=== PATIENT | female | born 1950 | race Caucasian/White ===

== ENCOUNTER 2018-11-28 13:54 | Emergency (ER) | payer MEDICARE ==
[~2018-11-28] VITALS: Ht 160 cm; Wt 67.6 kg
[2018-11-28 14:20] VITALS: BP 147/89
== END 2018-11-28 17:55 | disposition home or self-care (01) ==
LOC: ER 13:54
DX: H10.13 Acute atopic conjunctivitis, bilateral (principal)

== ENCOUNTER 2021-01-17 00:21 | Inpatient (IN) | payer MEDICARE, OTHER ==
[~2021-01-17] VITALS: Ht 157.5 cm; Wt 76.0 kg
[2021-01-17 01:45] LABS: Basophils # (auto) 0.1 10 ^3/uL (0-0.2); Basophils % (auto) 0.9 % (0.0-2.0); Eosinophils # (auto) 0 10 ^3/uL (0-0.8); Eosinophils % (auto) 0.1 % (0.0-7.0); Hematocrit 42.5 % (36.0-46.0); Hemoglobin 14.5 g/dL (12.2-16.2); Lymphocytes # (auto) 1.3 10 ^3/uL (0.4-5.4); Lymphocytes % (auto) 8.5 % (10.0-50.0); Mean Corpuscular Hemoglobin 29.7 pg (28.0-32.0); Mean Corpuscular Hgb Conc. 34.2 g/dL (32.0-36.0); Monocytes # (auto) 0.8 10 ^3/uL (0-1.3); Monocytes % (auto) 4.8 % (0.0-12.0); Neutrophils # (auto) 13.6 10 ^3/uL (1.6-8.6); Neutrophils % (auto) 85.7 % (37.0-80.0); Nucleated Red Blood Cells % 0.9 %; Red Blood Cells 4.88 10^6/uL (4.0-5.20); Red Cell Distribution Width 14.9 % (11.8-14.3); White Blood Cell 15.8 10^3/uL (4.4-10.8)
[2021-01-17 02:04] LABS: Albumin 2.6 g/dL (3.4-5.0); BUN/Creatinine Ratio 33.5; Calcium 8.6 mg/dL (8.5-10.1); Magnesium 2.9 mg/dL (1.6-2.6); Potassium 3.6 mmol/L (3.5-5.1)
[2021-01-17 02:09] LABS: Lactic Acid w/Reflex 3.4 mmol/L (0.4-2.0)
[2021-01-17 02:12] LABS: Bilirubin, Total 1.1 mg/dL (0.2-1.0); Total Protein 7.7 g/dL (6.4-8.2)
[2021-01-17 02:28] LABS: INR 1.18 (0.9-1.15); Partial Thromboplastin Time 30.2 sec (23.6-33.0)
[2021-01-17] MEDS ORDERED: cefTRIAXone 1GM/50ML D5W 50 ML IV ONE (02:45)
[2021-01-17] MEDS ORDERED: ASPirin 325 MG TAB PO ONE (02:45)
[2021-01-17] MEDS ORDERED: ENOXAPARIN SOD 100 MG/1 ML SYRINGE SC ONE (02:45)
[2021-01-17] MEDS ORDERED: AZITHROMYCIN 500MG/ 250ML 250 ML IV ONE (02:45)
[2021-01-17] MEDS ORDERED: DOCUSATE SOD 100 MG CAP PO PRN (03:30)
[2021-01-17] MEDS ORDERED: ACETAMINOPHEN 500 MG TAB PO PRN (03:30)
[2021-01-17] MEDS ORDERED: SODIUM CHLORIDE 0.9% 1,000 ML IV SCH (03:30)
[2021-01-17] MEDS ORDERED: NITROGLYCERIN 0.4 MG SL TAB SL PRN (03:30)
[2021-01-17] MEDS ORDERED: ACETAMINOPHEN 325 MG TAB PO PRN (03:30)
[2021-01-17] MEDS ORDERED: MORPHINE SULFATE INJECTION 2 MG/ML SYRG IV PRN (03:30)
[2021-01-17] MEDS ORDERED: HYDROcodone-ACET 5/325MG TAB PO PRN (03:30)
[2021-01-17] MEDS ORDERED: DexAMETHasone SOD PHOS 10MG/1ML VIAL INJ IV ONE (03:30)
[2021-01-17] MEDS: ALBUTEROL SULF HFA 90MCG INH 200DOSE IN SCH ×3 (07:48→21:39)
[2021-01-17 09:00] VITALS: BP 126/77
[2021-01-17] MEDS: FAMOTIDINE (10MG/ML) 2ML VL IV SCH ×2 (09:50→22:23)
[2021-01-17] MEDS: MULTIPLE VITAMIN TAB PO SCH (09:50)
[2021-01-17] MEDS: ASPirin 81 mg TAB PO SCH (09:50)
[2021-01-17] MEDS: ZINC SULFATE 220mg CAP or TAB PO SCH (09:50)
[2021-01-17] MEDS: HEPARIN SODIUM (PORCINE) 5000 UNITS/ML 1ML VIAL SC SCH ×2 (09:51→22:24)
[2021-01-17] MEDS: ASCORBIC ACID 500 MG TAB PO SCH ×2 (09:51→22:23)
[2021-01-17] MEDS: D5W/SOD CHL 0.45%/KCL 20MEQ 1,000 ML IV SCH (10:46)
[2021-01-17 11:26] LABS: Urine Bacteria MOD /hpf (None Seen); Urine Blood 1+ /uL (Negative); Urine Budding Yeast FEW /hpf (None Seen); Urine Mucus FEW (None Seen); Urine Specific Gravity 1.024 (1.001-1.035); Urine WBC 12 /hpf (0 - 5)
[2021-01-17 11:36] LABS: Protein, Urine 266.3 mg/dL (0.0-11.9)
[2021-01-17] MEDS ORDERED: methylPREDNISolone SOD SUCC 40 MG/ML VL IV SCH (12:00)
[2021-01-17 13:00] VITALS: BP 101/61
[2021-01-17] MEDS ORDERED: REMDESIVIR 200 MG in NS 210ml LOADING DOSE ADULT IV ONE (15:00)
[2021-01-17 15:10] VITALS: BP 131/74
[2021-01-17 16:46] VITALS: BP 126/70
[2021-01-17 22:07] VITALS: BP 146/81
[2021-01-18 05:03] VITALS: BP 116/59
[2021-01-18 06:26] LABS: Basophils # (auto) 0 10 ^3/uL (0-0.2); Basophils % (auto) 0.1 % (0.0-2.0); Eosinophils # (auto) 0 10 ^3/uL (0-0.8); Hematocrit 40.2 % (36.0-46.0); Hemoglobin 13.3 g/dL (12.2-16.2); Lymphocytes # (auto) 1.6 10 ^3/uL (0.4-5.4); Lymphocytes % (auto) 6.8 % (10.0-50.0); Mean Corpuscular Hemoglobin 29.8 pg (28.0-32.0); Mean Corpuscular Hgb Conc. 33.2 g/dL (32.0-36.0); Mean Corpuscular Volume 89.6 fL (80.0-100.0); Monocytes # (auto) 0.8 10 ^3/uL (0-1.3); Monocytes % (auto) 3.3 % (0.0-12.0); Neutrophils # (auto) 21.1 10 ^3/uL (1.6-8.6); Neutrophils % (auto) 89.8 % (37.0-80.0); Nucleated Red Blood Cells % 0.5 %; Red Blood Cells 4.49 10^6/uL (4.0-5.20); Red Cell Distribution Width 15.6 % (11.8-14.3); White Blood Cell 23.5 10^3/uL (4.4-10.8)
[2021-01-18 06:37] LABS: Potassium 3.7 mmol/L (3.5-5.1)
[2021-01-18] MEDS: ALBUTEROL SULF HFA 90MCG INH 200DOSE IN SCH ×3 (06:38→20:44)
[2021-01-18 06:51] LABS: Albumin 2.1 g/dL (3.4-5.0); BUN/Creatinine Ratio 43.9; Bilirubin, Total 0.8 mg/dL (0.2-1.0); CRP High Sensitivity 17.3 mg/dL (< 0.3); Calcium 8.1 mg/dL (8.5-10.1); Total Protein 6.6 g/dL (6.4-8.2)
[2021-01-18] MEDS: D5W/SOD CHL 0.45%/KCL 20MEQ 1,000 ML IV SCH ×2 (07:08→12:55)
[2021-01-18 08:00] VITALS: BP 150/57
[2021-01-18] MEDS ORDERED: REMDESIVIR PER PHARMACY 0 ML IV SCH (10:00)
[2021-01-18] MEDS: DexAMETHasone SOD PHOS 10MG/1ML VIAL INJ IV SCH (10:32)
[2021-01-18] MEDS: cefTRIAXone 1GM/50ML D5W 50 ML IV SCH (10:32)
[2021-01-18] MEDS: FAMOTIDINE (10MG/ML) 2ML VL IV SCH (10:33)
[2021-01-18] MEDS: ZINC SULFATE 220mg CAP or TAB PO SCH (10:34)
[2021-01-18] MEDS: ASPirin 81 mg TAB PO SCH (10:34)
[2021-01-18] MEDS: AZITHROMYCIN 500MG/ 250ML 250 ML IV SCH (10:34)
[2021-01-18] MEDS: ASCORBIC ACID 500 MG TAB PO SCH ×2 (10:35→21:23)
[2021-01-18] MEDS: MULTIPLE VITAMIN TAB PO SCH (10:35)
[2021-01-18] MEDS: HEPARIN SODIUM (PORCINE) 5000 UNITS/ML 1ML VIAL SC SCH (10:36)
[2021-01-18 12:00] VITALS: BP 125/59
[2021-01-18 16:00] VITALS: BP 128/70
[2021-01-18] MEDS: REMDESIVIR 100mg 100 MG in SODIUM CHL 0.9% 230 ML IV SCH (16:00)
[2021-01-18] MEDS: ENOXAPARIN SOD 60 MG/0.6 ML SYRINGE SC SCH (21:24)
[2021-01-18 22:00] VITALS: BP 130/59
[2021-01-19] MEDS: D5W/SOD CHL 0.45%/KCL 20MEQ 1,000 ML IV SCH ×3 (02:15→22:00)
[2021-01-19 05:00] VITALS: BP 119/64
[2021-01-19 06:08] LABS: Hemoglobin 12.1 g/dL (12.2-16.2); Mean Corpuscular Hemoglobin 29.4 pg (28.0-32.0); Mean Corpuscular Hgb Conc. 33.8 g/dL (32.0-36.0); Red Blood Cells 4.14 10^6/uL (4.0-5.20); Red Cell Distribution Width 15.1 % (11.8-14.3); White Blood Cell 17.2 10^3/uL (4.4-10.8)
[2021-01-19] MEDS: ALBUTEROL SULF HFA 90MCG INH 200DOSE IN SCH ×2 (06:11→22:10)
[2021-01-19 06:18] LABS: Basophils % (manual) 0 (0.0-2.0); Blast Cells 0; Eosinophils % (manual) 0 (0-7); Metamyelocytes % 0; Promyelocytes % 0; Reactive Lymphocytes 0
[2021-01-19 06:26] LABS: Albumin 1.9 g/dL (3.4-5.0); BUN/Creatinine Ratio 41.6; Calcium 8.1 mg/dL (8.5-10.1)
[2021-01-19 06:29] LABS: Bilirubin, Total 0.7 mg/dL (0.2-1.0); Total Protein 6.1 g/dL (6.4-8.2)
[2021-01-19 07:58] LABS: Band Neutrophils % (manual) 4; Lymphocytes % (manual) 5 (10.0-50.0); Monocytes % (manual) 1 (0-12); Myelocytes % 2
[2021-01-19] MEDS ORDERED: THROAT LOZENGES(CEPASTAT) MT PRN (08:00)
[2021-01-19] MEDS: DexAMETHasone SOD PHOS 10MG/1ML VIAL INJ IV SCH (08:49)
[2021-01-19] MEDS: cefTRIAXone 1GM/50ML D5W 50 ML IV SCH (08:49)
[2021-01-19] MEDS: AZITHROMYCIN 500MG/ 250ML 250 ML IV SCH (08:50)
[2021-01-19] MEDS: ASPirin 81 mg TAB PO SCH (08:50)
[2021-01-19] MEDS: FAMOTIDINE (10MG/ML) 2ML VL IV SCH (08:50)
[2021-01-19] MEDS: ASCORBIC ACID 500 MG TAB PO SCH ×2 (08:51→21:56)
[2021-01-19] MEDS: ENOXAPARIN SOD 60 MG/0.6 ML SYRINGE SC SCH ×2 (08:51→21:56)
[2021-01-19] MEDS: MULTIPLE VITAMIN TAB PO SCH (08:51)
[2021-01-19] MEDS: ZINC SULFATE 220mg CAP or TAB PO SCH (08:51)
[2021-01-19 09:00] VITALS: BP 119/65
[2021-01-19 12:56] VITALS: BP 129/72
[2021-01-19] MEDS: REMDESIVIR 100mg 100 MG in SODIUM CHL 0.9% 230 ML IV SCH (16:19)
[2021-01-19 17:00] VITALS: BP 135/63
[2021-01-19 22:00] VITALS: BP 146/84
[2021-01-20] VITALS (7 sets, daily range): BP systolic 123–145; BP diastolic 68–89
[2021-01-20 06:28] LABS: Potassium 4.3 mmol/L (3.5-5.1)
[2021-01-20 06:32] LABS: BUN/Creatinine Ratio 41.9; Bilirubin, Total 0.8 mg/dL (0.2-1.0)
[2021-01-20] MEDS: ALBUTEROL SULF HFA 90MCG INH 200DOSE IN SCH ×3 (08:04→22:26)
[2021-01-20] MEDS: DexAMETHasone SOD PHOS 10MG/1ML VIAL INJ IV SCH (09:43)
[2021-01-20] MEDS: cefTRIAXone 1GM/50ML D5W 50 ML IV SCH (09:43)
[2021-01-20] MEDS: FAMOTIDINE (10MG/ML) 2ML VL IV SCH (09:44)
[2021-01-20] MEDS: ZINC SULFATE 220mg CAP or TAB PO SCH (09:45)
[2021-01-20] MEDS: ENOXAPARIN SOD 60 MG/0.6 ML SYRINGE SC SCH (09:45)
[2021-01-20] MEDS: ASCORBIC ACID 500 MG TAB PO SCH ×2 (09:45→21:37)
[2021-01-20] MEDS: MULTIPLE VITAMIN TAB PO SCH (09:45)
[2021-01-20] MEDS: ASPirin 81 mg TAB PO SCH (09:45)
[2021-01-20] MEDS: AZITHROMYCIN 500MG/ 250ML 250 ML IV SCH (11:49)
[2021-01-20] MEDS: SODIUM BICARBONATE 8.4 % INJ 50ML VIAL IV ONE ×2 (15:50→17:39)
[2021-01-20] MEDS: REMDESIVIR 100mg 100 MG in SODIUM CHL 0.9% 230 ML IV SCH (16:13)
[2021-01-20] MEDS: ENOXAPARIN SOD 80 MG/0.8ML SYRINGE SC SCH (21:37)
[2021-01-21 05:00] VITALS: BP 142/73
[2021-01-21 06:26] LABS: Albumin 1.9 g/dL (3.4-5.0); Calcium 8.4 mg/dL (8.5-10.1); Potassium 4.1 mmol/L (3.5-5.1)
[2021-01-21 06:28] LABS: BUN/Creatinine Ratio 32.2; Bilirubin, Total 0.8 mg/dL (0.2-1.0)
[2021-01-21 06:56] LABS: Hematocrit 37.9 % (36.0-46.0); Hemoglobin 12.4 g/dL (12.2-16.2); Mean Corpuscular Hemoglobin 28.7 pg (28.0-32.0); Mean Corpuscular Hgb Conc. 32.6 g/dL (32.0-36.0); Mean Corpuscular Volume 87.9 fL (80.0-100.0); Red Blood Cells 4.31 10^6/uL (4.0-5.20); Red Cell Distribution Width 15.3 % (11.8-14.3); White Blood Cell 15.1 10^3/uL (4.4-10.8)
[2021-01-21 07:04] LABS: Basophils % (manual) 0 (0.0-2.0); Blast Cells 0; Metamyelocytes % 0; Myelocytes % 0; Promyelocytes % 0; Reactive Lymphocytes 0
[2021-01-21] MEDS: ALBUTEROL SULF HFA 90MCG INH 200DOSE IN PRN ×2 (08:03→23:04)
[2021-01-21 08:49] LABS: Band Neutrophils % (manual) 3; Eosinophils % (manual) 1 (0-7); Lymphocytes % (manual) 5 (10.0-50.0); Monocytes % (manual) 3 (0-12)
[2021-01-21 09:00] VITALS: BP 139/71
[2021-01-21] MEDS: FAMOTIDINE (10MG/ML) 2ML VL IV SCH (09:56)
[2021-01-21] MEDS: ENOXAPARIN SOD 80 MG/0.8ML SYRINGE SC SCH ×2 (09:56→22:20)
[2021-01-21] MEDS: DexAMETHasone SOD PHOS 10MG/1ML VIAL INJ IV SCH (09:56)
[2021-01-21] MEDS: ASPirin 81 mg TAB PO SCH (09:56)
[2021-01-21] MEDS: ZINC SULFATE 220mg CAP or TAB PO SCH (09:56)
[2021-01-21] MEDS: ASCORBIC ACID 500 MG TAB PO SCH ×2 (09:56→22:20)
[2021-01-21] MEDS: cefTRIAXone 1GM/50ML D5W 50 ML IV SCH (09:56)
[2021-01-21] MEDS: MULTIPLE VITAMIN TAB PO SCH (09:56)
[2021-01-21] MEDS: Ensure Enlive Strawberry 8oz Bottle PO SCH ×2 (09:57→18:27)
[2021-01-21] MEDS: AZITHROMYCIN 500MG/ 250ML 250 ML IV SCH (09:57)
[2021-01-21 13:00] VITALS: BP 128/67
[2021-01-21] MEDS: REMDESIVIR 100mg 100 MG in SODIUM CHL 0.9% 230 ML IV SCH (15:08)
[2021-01-21 17:00] VITALS: BP 142/65
[2021-01-21 22:00] VITALS: BP 148/77
[2021-01-22 05:04] VITALS: BP 141/69
[2021-01-22 05:44] LABS: Basophils # (auto) 0 10 ^3/uL (0-0.2); Basophils % (auto) 0.3 % (0.0-2.0); Eosinophils # (auto) 0 10 ^3/uL (0-0.8); Eosinophils % (auto) 0.3 % (0.0-7.0); Hematocrit 35.5 % (36.0-46.0); Hemoglobin 12.1 g/dL (12.2-16.2); Lymphocytes # (auto) 0.7 10 ^3/uL (0.4-5.4); Lymphocytes % (auto) 4.6 % (10.0-50.0); Mean Corpuscular Hemoglobin 29.5 pg (28.0-32.0); Mean Corpuscular Hgb Conc. 34.1 g/dL (32.0-36.0); Mean Corpuscular Volume 86.3 fL (80.0-100.0); Monocytes # (auto) 0.2 10 ^3/uL (0-1.3); Monocytes % (auto) 1.3 % (0.0-12.0); Neutrophils # (auto) 13.4 10 ^3/uL (1.6-8.6); Neutrophils % (auto) 93.5 % (37.0-80.0); Nucleated Red Blood Cells % 0.1 %; Red Blood Cells 4.11 10^6/uL (4.0-5.20); White Blood Cell 14.4 10^3/uL (4.4-10.8)
[2021-01-22 06:27] LABS: Potassium 3.9 mmol/L (3.5-5.1)
[2021-01-22 06:39] LABS: Albumin 1.7 g/dL (3.4-5.0); Calcium 8.5 mg/dL (8.5-10.1)
[2021-01-22 06:42] LABS: Bilirubin, Total 0.7 mg/dL (0.2-1.0); Total Protein 5.9 g/dL (6.4-8.2)
[2021-01-22] MEDS: ALBUTEROL SULF HFA 90MCG INH 200DOSE IN PRN (07:19)
[2021-01-22 09:00] VITALS: BP 137/70
[2021-01-22] MEDS: Ensure Enlive Strawberry 8oz Bottle PO SCH ×2 (09:01→18:00)
[2021-01-22] MEDS: cefTRIAXone 1GM/50ML D5W 50 ML IV SCH (09:01)
[2021-01-22] MEDS: ASPirin 81 mg TAB PO SCH (09:02)
[2021-01-22] MEDS: DexAMETHasone SOD PHOS 10MG/1ML VIAL INJ IV SCH (09:02)
[2021-01-22] MEDS: ASCORBIC ACID 500 MG TAB PO SCH ×2 (09:02→21:39)
[2021-01-22] MEDS: ZINC SULFATE 220mg CAP or TAB PO SCH (09:02)
[2021-01-22] MEDS: FAMOTIDINE (10MG/ML) 2ML VL IV SCH (09:02)
[2021-01-22] MEDS: MULTIPLE VITAMIN TAB PO SCH (09:02)
[2021-01-22] MEDS: ENOXAPARIN SOD 80 MG/0.8ML SYRINGE SC SCH ×2 (09:03→21:39)
[2021-01-22] MEDS: AZITHROMYCIN 500MG/ 250ML 250 ML IV SCH (10:08)
[2021-01-22] MEDS ORDERED: ALPRAZolam 0.25 MG TAB PO PRN ×2 (12:30)
[2021-01-22 13:00] VITALS: BP 141/67
[2021-01-22 17:00] VITALS: BP 136/68
[2021-01-22 22:00] VITALS: BP 143/75
[2021-01-23 04:59] VITALS: BP 141/69
[2021-01-23 05:52] LABS: Basophils # (auto) 0 10 ^3/uL (0-0.2); Basophils % (auto) 0.2 % (0.0-2.0); Eosinophils # (auto) 0 10 ^3/uL (0-0.8); Eosinophils % (auto) 0.2 % (0.0-7.0); Lymphocytes # (auto) 0.6 10 ^3/uL (0.4-5.4); Lymphocytes % (auto) 4.3 % (10.0-50.0); Mean Corpuscular Hemoglobin 29.3 pg (28.0-32.0); Mean Corpuscular Hgb Conc. 33.4 g/dL (32.0-36.0); Mean Corpuscular Volume 87.8 fL (80.0-100.0); Monocytes # (auto) 0.3 10 ^3/uL (0-1.3); Monocytes % (auto) 2.1 % (0.0-12.0); Neutrophils # (auto) 13.7 10 ^3/uL (1.6-8.6); Neutrophils % (auto) 93.2 % (37.0-80.0); Nucleated Red Blood Cells % 0.1 %; Red Blood Cells 4.44 10^6/uL (4.0-5.20); Red Cell Distribution Width 15.2 % (11.8-14.3); White Blood Cell 14.7 10^3/uL (4.4-10.8)
[2021-01-23 06:15] LABS: Albumin 1.8 g/dL (3.4-5.0); Calcium 8.5 mg/dL (8.5-10.1); Potassium 4.5 mmol/L (3.5-5.1)
[2021-01-23 06:18] LABS: BUN/Creatinine Ratio 33.3; Bilirubin, Total 0.7 mg/dL (0.2-1.0); Total Protein 6.2 g/dL (6.4-8.2)
[2021-01-23 09:00] VITALS: BP 148/74
[2021-01-23] MEDS: DexAMETHasone SOD PHOS 10MG/1ML VIAL INJ IV SCH (10:06)
[2021-01-23] MEDS: FAMOTIDINE (10MG/ML) 2ML VL IV SCH (10:06)
[2021-01-23] MEDS: Ensure Enlive Strawberry 8oz Bottle PO SCH ×2 (10:06→18:00)
[2021-01-23] MEDS: ASPirin 81 mg TAB PO SCH (10:07)
[2021-01-23] MEDS: ASCORBIC ACID 500 MG TAB PO SCH ×2 (10:07→21:56)
[2021-01-23] MEDS: ZINC SULFATE 220mg CAP or TAB PO SCH (10:07)
[2021-01-23] MEDS: MULTIPLE VITAMIN TAB PO SCH (10:07)
[2021-01-23] MEDS: ENOXAPARIN SOD 80 MG/0.8ML SYRINGE SC SCH ×2 (10:08→21:57)
[2021-01-23 13:00] VITALS: BP 149/75
[2021-01-23 17:00] VITALS: BP 133/81
[2021-01-23 22:00] VITALS: BP 156/81
[2021-01-23] MEDS: ALBUTEROL SULF HFA 90MCG INH 200DOSE IN PRN (22:26)
[2021-01-24 05:00] VITALS: BP 142/77
[2021-01-24 06:04] LABS: Calcium 8.6 mg/dL (8.5-10.1); Potassium 4.3 mmol/L (3.5-5.1)
[2021-01-24 06:07] LABS: BUN/Creatinine Ratio 34.5
[2021-01-24 06:17] LABS: Basophils # (auto) 0 10 ^3/uL (0-0.2); Basophils % (auto) 0.1 % (0.0-2.0); Eosinophils # (auto) 0 10 ^3/uL (0-0.8); Eosinophils % (auto) 0.2 % (0.0-7.0); Hematocrit 39.4 % (36.0-46.0); Hemoglobin 12.9 g/dL (12.2-16.2); Lymphocytes # (auto) 0.8 10 ^3/uL (0.4-5.4); Lymphocytes % (auto) 5.5 % (10.0-50.0); Mean Corpuscular Hemoglobin 28.7 pg (28.0-32.0); Mean Corpuscular Hgb Conc. 32.7 g/dL (32.0-36.0); Mean Corpuscular Volume 87.9 fL (80.0-100.0); Monocytes # (auto) 0.5 10 ^3/uL (0-1.3); Monocytes % (auto) 3.4 % (0.0-12.0); Neutrophils % (auto) 90.8 % (37.0-80.0); Nucleated Red Blood Cells % 0.1 %; Red Blood Cells 4.49 10^6/uL (4.0-5.20); Red Cell Distribution Width 15.1 % (11.8-14.3); White Blood Cell 14.3 10^3/uL (4.4-10.8)
[2021-01-24] MEDS: ALBUTEROL SULF HFA 90MCG INH 200DOSE IN PRN ×2 (07:10→22:40)
[2021-01-24 09:39] VITALS: BP 135/69
[2021-01-24] MEDS: Ensure Enlive Strawberry 8oz Bottle PO SCH ×2 (10:03→18:46)
[2021-01-24] MEDS: DexAMETHasone SOD PHOS 10MG/1ML VIAL INJ IV SCH (10:03)
[2021-01-24] MEDS: ASPirin 81 mg TAB PO SCH (10:04)
[2021-01-24] MEDS: FAMOTIDINE (10MG/ML) 2ML VL IV SCH (10:04)
[2021-01-24] MEDS: MULTIPLE VITAMIN TAB PO SCH (10:04)
[2021-01-24] MEDS: ASCORBIC ACID 500 MG TAB PO SCH ×2 (10:04→22:34)
[2021-01-24] MEDS: ZINC SULFATE 220mg CAP or TAB PO SCH (10:04)
[2021-01-24] MEDS: ENOXAPARIN SOD 80 MG/0.8ML SYRINGE SC SCH ×2 (10:05→22:34)
[2021-01-24 13:00] VITALS: BP 133/57
[2021-01-24 17:00] VITALS: BP 122/85
[2021-01-24 22:00] VITALS: BP 135/89
[2021-01-25 01:36] VITALS: BP 135/89
[2021-01-25 05:00] VITALS: BP 127/65
[2021-01-25 06:37] LABS: Basophils # (auto) 0 10 ^3/uL (0-0.2); Basophils % (auto) 0.1 % (0.0-2.0); Eosinophils # (auto) 0.1 10 ^3/uL (0-0.8); Eosinophils % (auto) 0.8 % (0.0-7.0); Hematocrit 36.8 % (36.0-46.0); Hemoglobin 12.4 g/dL (12.2-16.2); Lymphocytes # (auto) 1.1 10 ^3/uL (0.4-5.4); Lymphocytes % (auto) 7.8 % (10.0-50.0); Mean Corpuscular Hemoglobin 29.4 pg (28.0-32.0); Mean Corpuscular Hgb Conc. 33.6 g/dL (32.0-36.0); Mean Corpuscular Volume 87.3 fL (80.0-100.0); Monocytes # (auto) 0.5 10 ^3/uL (0-1.3); Monocytes % (auto) 3.6 % (0.0-12.0); Neutrophils # (auto) 12.5 10 ^3/uL (1.6-8.6); Neutrophils % (auto) 87.7 % (37.0-80.0); Red Blood Cells 4.22 10^6/uL (4.0-5.20); White Blood Cell 14.3 10^3/uL (4.4-10.8)
[2021-01-25 06:49] LABS: BUN/Creatinine Ratio 38.5; Calcium 8.7 mg/dL (8.5-10.1); Potassium 4.5 mmol/L (3.5-5.1)
[2021-01-25] MEDS: Ensure Enlive Strawberry 8oz Bottle PO SCH ×2 (08:00→22:13)
[2021-01-25 08:30] VITALS: BP 124/76
[2021-01-25] MEDS: FAMOTIDINE (10MG/ML) 2ML VL IV SCH (09:45)
[2021-01-25] MEDS: DexAMETHasone SOD PHOS 10MG/1ML VIAL INJ IV SCH (09:45)
[2021-01-25] MEDS: ASPirin 81 mg TAB PO SCH (09:46)
[2021-01-25] MEDS: ASCORBIC ACID 500 MG TAB PO SCH ×2 (09:47→22:13)
[2021-01-25] MEDS: ZINC SULFATE 220mg CAP or TAB PO SCH (09:47)
[2021-01-25] MEDS: MULTIPLE VITAMIN TAB PO SCH (09:48)
[2021-01-25] MEDS: ENOXAPARIN SOD 80 MG/0.8ML SYRINGE SC SCH ×2 (09:48→22:13)
[2021-01-25 12:30] VITALS: BP 119/80
[2021-01-25 17:00] VITALS: BP 146/68
[2021-01-25 22:00] VITALS: BP 127/68
[2021-01-25] MEDS: ALBUTEROL SULF HFA 90MCG INH 200DOSE IN PRN (22:43)
[2021-01-26 05:00] VITALS: BP 134/71
[2021-01-26 06:07] LABS: Potassium 4.6 mmol/L (3.5-5.1)
[2021-01-26 06:21] LABS: BUN/Creatinine Ratio 34.4
[2021-01-26 06:52] LABS: Basophils # (auto) 0 10 ^3/uL (0-0.2); Basophils % (auto) 0.3 % (0.0-2.0); Eosinophils # (auto) 0.1 10 ^3/uL (0-0.8); Eosinophils % (auto) 0.5 % (0.0-7.0); Hematocrit 36.5 % (36.0-46.0); Hemoglobin 12.3 g/dL (12.2-16.2); Lymphocytes # (auto) 1.4 10 ^3/uL (0.4-5.4); Lymphocytes % (auto) 9.9 % (10.0-50.0); Mean Corpuscular Hemoglobin 29.3 pg (28.0-32.0); Mean Corpuscular Hgb Conc. 33.6 g/dL (32.0-36.0); Mean Corpuscular Volume 87.1 fL (80.0-100.0); Monocytes # (auto) 0.5 10 ^3/uL (0-1.3); Monocytes % (auto) 3.8 % (0.0-12.0); Neutrophils # (auto) 11.9 10 ^3/uL (1.6-8.6); Neutrophils % (auto) 85.5 % (37.0-80.0); Red Blood Cells 4.19 10^6/uL (4.0-5.20); Red Cell Distribution Width 14.9 % (11.8-14.3); White Blood Cell 13.9 10^3/uL (4.4-10.8)
[2021-01-26] MEDS: Ensure Enlive Strawberry 8oz Bottle PO SCH ×2 (08:00→18:00)
[2021-01-26] MEDS ORDERED: IOHEXOL 350 MG/ML 100ML IJ ONE (08:55)
[2021-01-26 09:00] VITALS: BP 112/89
[2021-01-26] MEDS: FAMOTIDINE (10MG/ML) 2ML VL IV SCH (09:06)
[2021-01-26] MEDS: DexAMETHasone SOD PHOS 10MG/1ML VIAL INJ IV SCH (09:06)
[2021-01-26] MEDS: ASPirin 81 mg TAB PO SCH (09:06)
[2021-01-26] MEDS: MULTIPLE VITAMIN TAB PO SCH (09:07)
[2021-01-26] MEDS: ZINC SULFATE 220mg CAP or TAB PO SCH (09:07)
[2021-01-26] MEDS: ASCORBIC ACID 500 MG TAB PO SCH ×2 (09:07→21:47)
[2021-01-26] MEDS: ENOXAPARIN SOD 80 MG/0.8ML SYRINGE SC SCH ×2 (09:08→21:47)
[2021-01-26 13:00] VITALS: BP 120/74
[2021-01-26 17:00] VITALS: BP 106/57
[2021-01-26 22:00] VITALS: BP 117/70
[2021-01-27 05:00] VITALS: BP 125/63
[2021-01-27] MEDS: ALBUTEROL SULF HFA 90MCG INH 200DOSE IN PRN ×2 (07:22→22:05)
[2021-01-27] MEDS: Ensure Enlive Strawberry 8oz Bottle PO SCH ×2 (08:00→17:52)
[2021-01-27 08:41] VITALS: BP 118/55
[2021-01-27] MEDS: FAMOTIDINE (10MG/ML) 2ML VL IV SCH (09:24)
[2021-01-27] MEDS: DexAMETHasone SOD PHOS 10MG/1ML VIAL INJ IV SCH (09:24)
[2021-01-27] MEDS: MULTIPLE VITAMIN TAB PO SCH (09:25)
[2021-01-27] MEDS: ENOXAPARIN SOD 80 MG/0.8ML SYRINGE SC SCH ×2 (09:25→21:59)
[2021-01-27] MEDS: ASPirin 81 mg TAB PO SCH (09:25)
[2021-01-27] MEDS: ASCORBIC ACID 500 MG TAB PO SCH ×2 (09:25→21:59)
[2021-01-27] MEDS: ZINC SULFATE 220mg CAP or TAB PO SCH (09:26)
[2021-01-27 12:37] VITALS: BP 129/65
[2021-01-27 16:03] LABS: Basophils # (auto) 0 10 ^3/uL (0-0.2); Basophils % (auto) 0.2 % (0.0-2.0); Eosinophils # (auto) 0 10 ^3/uL (0-0.8); Eosinophils % (auto) 0.1 % (0.0-7.0); Hematocrit 37.2 % (36.0-46.0); Hemoglobin 11.8 g/dL (12.2-16.2); Lymphocytes # (auto) 0.5 10 ^3/uL (0.4-5.4); Mean Corpuscular Hemoglobin 28.1 pg (28.0-32.0); Mean Corpuscular Hgb Conc. 31.7 g/dL (32.0-36.0); Mean Corpuscular Volume 88.6 fL (80.0-100.0); Monocytes # (auto) 0.4 10 ^3/uL (0-1.3); Monocytes % (auto) 2.7 % (0.0-12.0); Nucleated Red Blood Cells % 0.1 %; Red Cell Distribution Width 14.9 % (11.8-14.3); White Blood Cell 14.9 10^3/uL (4.4-10.8)
[2021-01-27 16:31] LABS: INR 1.01 (0.9-1.15); Partial Thromboplastin Time 29.3 sec (23.6-33.0)
[2021-01-27 16:33] LABS: BUN/Creatinine Ratio 28.6; Calcium 9.5 mg/dL (8.5-10.1); Potassium 5.1 mmol/L (3.5-5.1)
[2021-01-27 17:00] VITALS: BP 120/49
[2021-01-27] MEDS ORDERED: WARFARIN SODIUM 5 MG TAB PO ONE (17:00)
[2021-01-27 22:00] VITALS: BP 106/57
[2021-01-27 22:30] VITALS: BP 120/49
[2021-01-28 05:00] VITALS: BP 132/73
[2021-01-28 06:27] LABS: Potassium 4.6 mmol/L (3.5-5.1)
[2021-01-28 06:35] LABS: INR 1.11 (0.9-1.15); Partial Thromboplastin Time 30.3 sec (23.6-33.0)
[2021-01-28] MEDS: ALBUTEROL SULF HFA 90MCG INH 200DOSE IN PRN ×2 (06:39→20:09)
[2021-01-28 06:41] LABS: Basophils # (auto) 0 10 ^3/uL (0-0.2); Basophils % (auto) 0.3 % (0.0-2.0); Eosinophils # (auto) 0.1 10 ^3/uL (0-0.8); Hematocrit 34.1 % (36.0-46.0); Hemoglobin 11.1 g/dL (12.2-16.2); Lymphocytes # (auto) 2.1 10 ^3/uL (0.4-5.4); Lymphocytes % (auto) 14.8 % (10.0-50.0); Mean Corpuscular Hemoglobin 29.2 pg (28.0-32.0); Mean Corpuscular Hgb Conc. 32.6 g/dL (32.0-36.0); Mean Corpuscular Volume 89.6 fL (80.0-100.0); Monocytes # (auto) 0.8 10 ^3/uL (0-1.3); Neutrophils # (auto) 10.9 10 ^3/uL (1.6-8.6); Neutrophils % (auto) 77.9 % (37.0-80.0); Nucleated Red Blood Cells % 0.1 %; Red Blood Cells 3.81 10^6/uL (4.0-5.20); Red Cell Distribution Width 14.9 % (11.8-14.3)
[2021-01-28 06:43] LABS: BUN/Creatinine Ratio 28.6; CRP High Sensitivity 0.9 mg/dL (< 0.3); Calcium 8.9 mg/dL (8.5-10.1)
[2021-01-28 09:00] VITALS: BP 106/54
[2021-01-28] MEDS: DexAMETHasone SOD PHOS 10MG/1ML VIAL INJ IV SCH (09:03)
[2021-01-28] MEDS: ENOXAPARIN SOD 80 MG/0.8ML SYRINGE SC SCH ×2 (09:03→21:22)
[2021-01-28] MEDS: ASPirin 81 mg TAB PO SCH (09:03)
[2021-01-28] MEDS: MULTIPLE VITAMIN TAB PO SCH (09:04)
[2021-01-28] MEDS: FAMOTIDINE (10MG/ML) 2ML VL IV SCH (09:04)
[2021-01-28] MEDS: ASCORBIC ACID 500 MG TAB PO SCH ×2 (09:04→21:23)
[2021-01-28] MEDS: Ensure Enlive Strawberry 8oz Bottle PO SCH ×2 (09:04→19:01)
[2021-01-28] MEDS: ZINC SULFATE 220mg CAP or TAB PO SCH (09:04)
[2021-01-28 13:00] VITALS: BP 97/63
[2021-01-28 17:00] VITALS: BP 126/77
[2021-01-28] MEDS ORDERED: WARFARIN SODIUM 2.5 MG TAB PO ONE (17:00)
[2021-01-28 21:30] VITALS: BP 130/59
[2021-01-29 05:00] VITALS: BP 117/64
[2021-01-29 06:52] LABS: Potassium 4.6 mmol/L (3.5-5.1)
[2021-01-29] MEDS: ALBUTEROL SULF HFA 90MCG INH 200DOSE IN PRN ×2 (06:57→22:08)
[2021-01-29 07:11] LABS: BUN/Creatinine Ratio 32.9; CRP High Sensitivity 0.63 mg/dL (< 0.3); Calcium 9.1 mg/dL (8.5-10.1)
[2021-01-29 07:21] LABS: Basophils # (auto) 0 10 ^3/uL (0-0.2); Basophils % (auto) 0.2 % (0.0-2.0); Eosinophils # (auto) 0.1 10 ^3/uL (0-0.8); Eosinophils % (auto) 0.4 % (0.0-7.0); Hematocrit 31.5 % (36.0-46.0); Hemoglobin 10.6 g/dL (12.2-16.2); Lymphocytes # (auto) 2.3 10 ^3/uL (0.4-5.4); Lymphocytes % (auto) 16.5 % (10.0-50.0); Mean Corpuscular Hemoglobin 29.9 pg (28.0-32.0); Mean Corpuscular Hgb Conc. 33.9 g/dL (32.0-36.0); Mean Corpuscular Volume 88.3 fL (80.0-100.0); Monocytes # (auto) 0.9 10 ^3/uL (0-1.3); Monocytes % (auto) 6.2 % (0.0-12.0); Neutrophils # (auto) 10.5 10 ^3/uL (1.6-8.6); Neutrophils % (auto) 76.7 % (37.0-80.0); Nucleated Red Blood Cells % 0.1 %; Red Blood Cells 3.56 10^6/uL (4.0-5.20); White Blood Cell 13.8 10^3/uL (4.4-10.8)
[2021-01-29 07:28] LABS: INR 1.82 (0.9-1.15)
[2021-01-29 08:00] VITALS: BP 147/73
[2021-01-29] MEDS: ASPirin 81 mg TAB PO SCH (11:23)
[2021-01-29] MEDS: FAMOTIDINE (10MG/ML) 2ML VL IV SCH (11:23)
[2021-01-29] MEDS: ASCORBIC ACID 500 MG TAB PO SCH ×2 (11:24→21:51)
[2021-01-29] MEDS: ZINC SULFATE 220mg CAP or TAB PO SCH (11:24)
[2021-01-29] MEDS: MULTIPLE VITAMIN TAB PO SCH (11:24)
[2021-01-29] MEDS: ENOXAPARIN SOD 80 MG/0.8ML SYRINGE SC SCH ×2 (11:24→21:51)
[2021-01-29] MEDS: Ensure Enlive Strawberry 8oz Bottle PO SCH ×2 (11:30→18:00)
[2021-01-29 13:00] VITALS: BP 148/66
[2021-01-29 17:00] VITALS: BP 131/63
[2021-01-29] MEDS ORDERED: WARFARIN SODIUM 2 MG TAB PO ONE (17:00)
[2021-01-29 22:00] VITALS: BP 126/57
[2021-01-30 05:00] VITALS: BP 113/57
[2021-01-30 05:35] LABS: Basophils # (auto) 0 10 ^3/uL (0-0.2); Basophils % (auto) 0.4 % (0.0-2.0); Eosinophils # (auto) 0.4 10 ^3/uL (0-0.8); Eosinophils % (auto) 3.2 % (0.0-7.0); Hematocrit 34.5 % (36.0-46.0); Hemoglobin 11.7 g/dL (12.2-16.2); Lymphocytes # (auto) 2.3 10 ^3/uL (0.4-5.4); Lymphocytes % (auto) 19.3 % (10.0-50.0); Mean Corpuscular Hemoglobin 29.6 pg (28.0-32.0); Mean Corpuscular Hgb Conc. 33.7 g/dL (32.0-36.0); Mean Corpuscular Volume 87.7 fL (80.0-100.0); Monocytes # (auto) 0.8 10 ^3/uL (0-1.3); Monocytes % (auto) 6.3 % (0.0-12.0); Neutrophils # (auto) 8.6 10 ^3/uL (1.6-8.6); Neutrophils % (auto) 70.8 % (37.0-80.0); Nucleated Red Blood Cells % 0.1 %; Red Blood Cells 3.94 10^6/uL (4.0-5.20); Red Cell Distribution Width 15.3 % (11.8-14.3); White Blood Cell 12.1 10^3/uL (4.4-10.8)
[2021-01-30 05:54] LABS: INR 2.84 (0.9-1.15)
[2021-01-30 06:00] LABS: Albumin 2.1 g/dL (3.4-5.0); BUN/Creatinine Ratio 26.2; CRP High Sensitivity 0.71 mg/dL (< 0.3); Calcium 8.9 mg/dL (8.5-10.1); Potassium 4.1 mmol/L (3.5-5.1)
[2021-01-30 09:00] VITALS: BP 113/70
[2021-01-30] MEDS: Ensure Enlive Strawberry 8oz Bottle PO SCH ×2 (09:00→17:47)
[2021-01-30] MEDS: FAMOTIDINE (10MG/ML) 2ML VL IV SCH (09:00)
[2021-01-30] MEDS: MULTIPLE VITAMIN TAB PO SCH (09:01)
[2021-01-30] MEDS: ASPirin 81 mg TAB PO SCH (09:01)
[2021-01-30] MEDS: ZINC SULFATE 220mg CAP or TAB PO SCH (09:01)
[2021-01-30] MEDS: ASCORBIC ACID 500 MG TAB PO SCH (09:01)
[2021-01-30] MEDS: ENOXAPARIN SOD 80 MG/0.8ML SYRINGE SC SCH (09:02)
[2021-01-30 12:42] VITALS: BP 127/68
[2021-01-30 16:35] VITALS: BP 125/84
== END 2021-01-30 21:20 | disposition left against medical advice (07) | DRG 177 ==
LOC: ER 00:21 → EDBD 00:21 → TELE 03:29 → TELE-EAST 07:01 → TELE-CENTR 01-29 09:19
PROVIDERS: ADMIT Nurse Practitioner Family; ATTEND Hospitalist
PROC: XW033E5 Introduction of Remdesivir Anti-infective into Peripheral Vein, Percutaneous Approach, New Technology Group 5 (ICD-10-PCS; 2021-01-17)
PROC: 05HA33Z Insertion of Infusion Device into Left Brachial Vein, Percutaneous Approach (ICD-10-PCS; principal; 2021-01-26)
PROC: B54NZZA Ultrasonography of Left Upper Extremity Veins, Guidance (ICD-10-PCS; 2021-01-26)
DX: U07.1 COVID-19 (principal); J12.82 Pneumonia due to coronavirus disease 2019; J96.01 Acute respiratory failure with hypoxia; I21.A1 Myocardial infarction type 2; J98.11 Atelectasis; E87.3 Alkalosis; I82.433 Acute embolism and thrombosis of popliteal vein, bilateral; I82.443 Acute embolism and thrombosis of tibial vein, bilateral; N17.9 Acute kidney failure, unspecified; E88.09 Other disorders of plasma-protein metabolism, not elsewhere classified; E11.9 Type 2 diabetes mellitus without complications; I10 Essential (primary) hypertension; D72.829 Elevated white blood cell count, unspecified; E66.9 Obesity, unspecified; F41.9 Anxiety disorder, unspecified; R53.81 Other malaise; R79.89 Other specified abnormal findings of blood chemistry; Z53.29 Procedure and treatment not carried out because of patient's decision for other reasons
CPT/HCPCS: 36415; 36600; 71045; 71275; 76775; 80048; 80053; 81001; 82040; 82570; 82728; 82805; 83036; 83605; 83735; 83880; 84156; 84300; 84484; 85007; 85025; 85027; 85379; 85610; 85730; 86141; 87040; 87426; 93005; 93306; 93970; 94640; 96365; 96366; 97110; 97116; 97163; 97530; G0378; J0696; J1100; J3490